=== PATIENT | female | born 2000 | race Caucasian/White ===

== ENCOUNTER 2020-06-17 06:48 | Emergency (ER) | payer OTHER ==
[~2020-06-17] VITALS: Ht 170.2 cm; Wt 72.6 kg
[2020-06-17 07:46] LABS: ABSOLUTE BASOPHILS 0.1 thou/uL (0.0-0.2); ABSOLUTE EOSINOPHILS 0.3 thou/uL (0.0-0.7); ABSOLUTE LYMPHOCYTES 1.8 thou/uL (0.8-5.3); ABSOLUTE MONOCYTES 0.6 thou/uL (0.0-1.2); ABSOLUTE NEUTROPHILS 4.4 thou/uL (1.6-8.1); BASOPHILS 0.8 %; EOSINOPHILS 4.4 %; HEMATOCRIT 35.3 % (37.0-47.0); HEMOGLOBIN 11.7 gm/dL (12.0-15.0); MCH 30.6 pg (26.0-34.0); MCHC 33.1 g/dL (28.0-37.0); MCV 92.5 fL (80.0-100.0); MPV 8.2 fl. (7.2-11.1); NUCLEATED RBCS 0 /100WBC; PLATELET COUNT* 281 thou/uL (150-400); POLYS 61.8 %; RBC 3.81 mil/uL (4.20-5.00); RDW-CV 13.5 % (10.5-14.5); WBC 7.1 thou/uL (4.0-11.0)
[2020-06-17 07:49] LABS: CALCIUM 8.7 mg/dL (8.5-10.1); CREATININE 0.8 mg/dL (0.6-1.3); POTASSIUM 3.8 mmol/L (3.5-5.1)
[2020-06-17 07:56] LABS: ALBUMIN 3.5 g/dL (3.4-5.0); TOTAL BILIRUBIN 0.3 mg/dL (<0.1-1.0); TOTAL PROTEIN 6.9 g/dL (6.4-8.2)
[2020-06-17 09:16] LABS: URINE BILIRUBIN NEGATIVE (Negative); URINE BLOOD NEGATIVE (Negative); URINE CLARITY CLEAR; URINE COLOR YELLOW; URINE GLUCOSE-RANDOM NEGATIVE (Negative); URINE KETONES 1+ (Negative); URINE LEUKOCYTES-REFLEX TRACE (Negative); URINE PROTEIN NEGATIVE (Negative); URINE UROBILINOGEN 0.2 E.U./dl (0.2-1.0)
[2020-06-17 09:19] LABS: URINE NITRITE-REFLEX POSITIVE (Negative)
[2020-06-17 09:31] LABS: BACTERIA-REFLEX >30 Many /HPF (None Seen); CASTS None Seen /LPF (None Seen); CRYSTALS None Seen /LPF (None Seen); MUCUS 4-6 Moderate strn/LPF (None Seen); SQUAMOUS 0-3 Few /LPF (0-3); URINE RBC 0-2 Rare /HPF (0-2); URINE WBC-REFLEX 6-15 Few /HPF (0-5)
[2020-06-17] MEDS ORDERED: BACTRIM DS TAB1 EAC1 PO (09:37)
[2020-06-17 10:16] VITALS: BP 111/66
--- NOTE | 2020-06-17 15:25 | EKG ---
[place] [address] ELECTROCARDIOGRAM REPORT Name: LORA TRACEY Room: [facility]#: [id number] Admission: 06/17/20 Attend Phys: Discharge: 06/17/20 Date of : [birth year] Date of Service: 06/17/2048 Report #: [id number] THIS REPORT FOR: //name// 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
== END 2020-06-17 10:16 | disposition home or self-care (01) ==
LOC: M.ERS 06:48
PROVIDERS: Emergency Medicine Emergency Medical Services
DX: N39.0 Urinary tract infection, site not specified (principal); R55 Syncope and collapse; Z88.0 Allergy status to penicillin; Z88.1 Allergy status to other antibiotic agents